=== PATIENT | male | born 1975 | race Hispanic/Latino ===

== ENCOUNTER 2016-06-24 18:14 | Observation (INO) | payer OTHER ==
--- NOTE | 2016-06-24 19:36 | ED.PDOC ---
History of Present Illness - General Chief Complaint: GI Problem Stated Complaint: epigastric discomfort, N/V Time Seen by Provider: 06/24/16 19:34 Source: patient - History of Present Illness Initial Comments: Conrad 40 y/o male stated that his symptoms started yesterday with diarrhea followed by nausea vomiting then this morning had mid abdominal pains Timing/Duration: 24 hours Allergies/Adverse Reactions: Allergies NO KNOWN ALLERGY Allergy (Verified 06/24/16 18:46) Past Medical History (General) - Patient Medical History Hx Stroke: No Hx Congestive Heart Failure: No Hx Diabetes: Yes - Vaccination History Hx Influenza Vaccination: Yes - 2015 Hx Pneumococcal Vaccination: No - Social History Hx Tobacco Use: No Hx Alcohol Use: Yes - Social use Hx Substance Use: Yes Family Medical History - Family History Father Living Status: Still Living Hx Cardiac Disease: Yes Hx Family Diabetes: Yes Physical Exam - Physical Exam General Appearance: Alert, No apparent distress Eye Exam: bilateral normal Ears, Nose, Throat: hearing grossly normal, normal ENT inspection, normal pharynx Neck: non-tender, full range of motion, supple Respiratory: chest non-tender, lungs clear, normal breath sounds, no respiratory distress Cardiovascular/Chest: normal peripheral pulses, regular rate, rhythm, no edema, no gallop, no JVD, no murmur Peripheral Pulses: radial,right: 2+, radial,left: 2+, dorsalis pedis,right: 2+, dorsalis pedis,left: 2+ Gastrointestinal/Abdominal: normal bowel sounds, soft, no organomegaly, tenderness - mid abdomen Back Exam: normal inspection, no CVA tenderness, no vertebral tenderness Extremity: normal range of motion, non-tender, normal inspection Neurologic: alert, normal mood/affect, oriented x 3 Skin Exam: normal color, warm/dry Progress - Results/Orders Results/Orders: 06/24/16 18:58 URINALYSIS Stat 06/24/16 19:37 Chest,1 View [RAD] Stat 06/24/16 19:38 EKG Assessment ONCE 06/24/16 19:45 EKG STAT 06/24/16 20:13 Abdoment/Pelvis w/o Contrast [CT] Stat 06/24/16 20:14 Lactated Ringers [Lr] 1,000 ml IVS ONCE Laboratory Results WBC 7.3 K/mm3 (4.8-10.8) 06/24/16 18:40 RBC 5.44 M/mm3 (4.70-6.10) 06/24/16 18:40 Hgb 16.5 gm/dL (14.0-18.0) 06/24/16 18:40 Hct 48.1 % (42.0-52.0) 06/24/16 18:40 MCV 88.3 fl (80.0-94.0) 06/24/16 18:40 MCH 30.3 pg (27.0-31.0) 06/24/16 18:40 MCHC 34.3 g/dL (33.0-37.0) 06/24/16 18:40 RDW 12.9 % (11.5-14.5) 06/24/16 18:40 Plt Count 213 K/mm3 (130-400) 06/24/16 18:40 MPV 9.5 fl (7.40-10.4) 06/24/16 18:40 Absolute Neuts (auto) 5.20 K/uL (1.8-6.8) 06/24/16 18:40 Absolute Lymphs (auto) 1.30 K/uL (1.0-3.4) 06/24/16 18:40 Absolute Monos (auto) 0.50 K/uL (0.2-0.8) 06/24/16 18:40 Absolute Eos (auto) 0.20 K/uL (0.0-0.4) 06/24/16 18:40 Absolute Basos (auto) 0.10 K/uL (0.0-0.1) 06/24/16 18:40 Neutrophils % 71.6 % (42.0-78.0) 06/24/16 18:40 Lymphocytes % 18.4 % (20.0-50.0) L 06/24/16 18:40 Monocytes % 7.0 % (2.0-9.0) 06/24/16 18:40 Eosinophils % 2.2 % (1.0-5.0) 06/24/16 18:40 Basophils % 0.8 % (0.0-2.0) 06/24/16 18:40 Sodium 134 mmol/L (135-145) L 06/24/16 18:40 Potassium 3.4 mmol/L (3.6-5.0) L 06/24/16 18:40 Chloride 101 mmol/L (101-111) 06/24/16 18:40 Carbon Dioxide 26 mmol/L (21-31) 06/24/16 18:40 Anion Gap 10.4 (12-18) L 06/24/16 18:40 BUN 8 mg/dL (7-18) 06/24/16 18:40 Creatinine 0.50 mg/dL (0.6-1.3) L 06/24/16 18:40 BUN/Creatinine Ratio 16.0 (10-20) 06/24/16 18:40 POC Glucose 250 mg/dL (70-105) H 06/24/16 19:12 Random Glucose 307 mg/dL (70-105) H 06/24/16 18:40 Serum Osmolality 278.2 mOsm/L (275-295) 06/24/16 18:40 Calcium 8.7 mg/dL (8.4-10.2) 06/24/16 18:40 Total Bilirubin 0.9 mg/dL (0.2-1.0) 06/24/16 18:40 AST 28 IU/L (10-42) 06/24/16 18:40 ALT 74 IU/L (10-60) H 06/24/16 18:40 Alkaline Phosphatase 98 IU/L (42-121) 06/24/16 18:40 Serum Total Protein 7.5 gm/dL (6.4-8.2) 06/24/16 18:40 Albumin 4.2 g/dl (3.2-5.5) 06/24/16 18:40 Globulin 3.3 gm/dL (2.3-3.5) 06/24/16 18:40 Albumin/Globulin Ratio 1.3 (1.1-1.9) 06/24/16 18:40 Lipase 84 U/L (22-51) H 06/24/16 18:40 - EKG/XRAY/CT EKG: Sinus Comments: normal ekg CT Ordered: Yes - abd/pelvis-diverticulosis,no diverticulitis Departure - Departure Clinical Impression: Abdominal pain, acute, epigastric, Diabetes 1.5, managed as type 2 Acute pancreatitis, unspecified Qualifiers: Pancreatitis type: unspecified pancreatitis type Qualifier Code: (K85.9) Acute pancreatitis, unspecified Time of Disposition: 00:12 - D/W David [id number] for admit Disposition: Admit Patient Condition: Good Departure Forms: ED Discharge - Pt. Copy, Patient Portal Self Enrollment Referrals: Edu Hunt MD [Primary Care Provider] - 1-2 Weeks
[2016-06-24] MEDS ORDERED: LACTATED RINGERS 1,000 ML IVS ONE (20:14)
--- NOTE | 2016-06-24 20:54 | CT ---
PROCEDURE: Abdoment/Pelvis w/o Contrast Clinical History: pain Indication: Same as above Comparison: None Technique: CT of the abdomen and pelvis was done without intravenous contrast. Images were obtained from the lung base to the level of the pubic symphysis in axial plane, followed by orthogonal sagittal and coronal reconstruction. Oral contrast was not given for the study. Total DLP: 978.60 mGy*cm. Findings: Images through the lung bases do not show any focal infiltrates or pleural effusions. There is a small hiatal hernia. The liver, gallbladder, pancreas, spleen and the bilateral adrenal glands appear unremarkable, given the limitation of lack of intravenous contrast. The bilateral kidneys do not show any evidence of hydronephrosis or nephrolithiasis. The bilateral ureters and the bilateral periureteral soft tissues and fat planes are unremarkable. The urinary bladder is unremarkable, without any evidence of wall thickening, calculi or filling defects. The small bowel appears unremarkable, without any evidence of small bowel obstruction or bowel wall thickening. There is no CT evidence of acute appendicitis, pericecal inflammatory change or ileocecal mesenteric adenitis. The ileocecal junction appears unremarkable. There is no CT evidence of acute colonic diverticulitis or colitis or large bowel obstruction. There is presence of large bowel diverticulosis, most pronounced in the distal descending colon and the sigmoid colon There is no pathological lymphadenopathy in the retroperitoneum or in the pelvic region. There is no evidence of free fluid or free air in the abdomen or the pelvic region. There is no clinically significant abdominal aortic aneurysm. There is no clinically significant inguinal or ventral hernia. The visualized lumbar spine show underlying mild degenerative change. The paravertebral soft tissues are unremarkable. The remainder of the pelvic structures are unremarkable. Impression: Large bowel diverticulosis without CT evidence of acute diverticulitis Location of Interpretation: [facility] Electronically signed by: Giorgio Lopez MD 06/24/2016 8:53 PM [employer]ORDS TECHNOLOGY TEACHER
--- NOTE | 2016-06-24 21:11 | RAD ---
PROCEDURE: XR CHEST 1 VIEW HISTORY: pain COMPARISON: None TECHNIQUE: Single projection of the chest was done. FINDINGS: There is presence of minimal right basilar infiltrate/atelectasis . There are no pneumothoraces or pleural effusions. The pulmonary vascularity is normal. The cardiomediastinal contour is unremarkable . IMPRESSION: There is presence of minimal right basilar infiltrate/atelectasis . Location of Interpretation: [facility] Electronically signed by: Giorgio Lopez MD 06/24/2016 9:10 PM CHILD DEVELOPMENT DIRECTOR
--- NOTE | 2016-06-25 00:39 | HP ---
SUPERVISING PHYSICIAN: Edu Hunt MD CHIEF COMPLAINT: Epigastric discomfort with some nausea and vomiting. HISTORY OF PRESENT ILLNESS: Mr. Tran is a 40-year-old, male who presented to the Emergency Department complaining of some nausea and vomiting the morning prior to admission with some epigastric pain prior to presenting to the Emergency Department. He notes that he had some diarrhea the previous day, but otherwise has been healthy. He has a history of being a type 2 diabetic, currently on metformin, but recently being started on Trulicity, which is now in his third week. He notes that initially he had no problems with the injection, but on week 2, he was having a little bit of nausea and this week, which is 24 hours post injection, he started having nausea and the epigastric discomfort. In the Emergency Department, laboratory studies showed him to have a normal CBC with white count 7.3. Chemistries showed potassium 3.4, glucose 307, BUN 8, creatinine 0.5. Liver functions showed slightly elevated AST of 74. Troponin was less than 0.02. Lipase was slightly elevated at 84. Urinalysis showed greater than 1000 glucose with 40 ketones. Otherwise, microscopic was within normal limits. H. pylori IGG antibody was positive. EKG showed normal sinus rhythm and the patient was denying any chest pain. He noted he was having abdominal pains that were more over the epigastric region. He was given a GI slider upon admission to the Medical/Surgical Floor which did provide some relief from the epigastric discomfort. Radiographic studies in the Emergency Department prior to admission included a chest x-ray and per radiology interpretation showed just a minimal right basilar infiltrate versus atelectasis. Abdominopelvic CT without contrast per radiology interpretation showed large bowel diverticulosis without CT evidence of acute diverticulitis. Otherwise, unremarkable. The patient is to be admitted to the Medical/Surgical Floor and placed in observation for further treatment and evaluation with concerns for possible acute pancreatitis versus complications from diabetes and possible H. pylori associated gastritis. PAST MEDICAL HISTORY: 1. Diabetes mellitus, type 2. PAST SURGICAL HISTORY: No surgeries noted. CURRENT MEDICATIONS: 1. Metformin 1000 mg twice daily. 2. Trulicity 0.75 mg subcutaneously weekly, last injection was on 06/24/16. ALLERGIES: NO KNOWN DRUG ALLERGIES. SOCIAL HISTORY: The patient works in the [employer] for [employer] in [place], [place]. He currently lives in [place]. He is , has no children. He denies ever smoking and drinks on social occasions. REVIEW OF SYSTEMS: CONSTITUTIONAL: Denies any fevers, chills, or unintentional weight loss or weight gain. HEENT: Denies nasal congestion, runny nose, sore throat, vision changes, earaches. RESPIRATORY: Denies cough, shortness of breath. CARDIOVASCULAR: Denies chest pain or palpitations. No syncopal episodes. GASTROINTESTINAL: As noted in history of present illness, epigastric discomfort with some nausea, vomiting and diarrhea. GENITOURINARY: Denies dysuria, polyuria or other urinary symptoms. NEUROLOGIC: Denies syncopal episodes or other neurological deficits. PHYSICAL EXAMINATION: VITAL SIGNS: Temperature 97.1. Pulse 67. Blood pressure 106/70. Respirations 16. O2 saturation 94% on room air. Weight 121.9 kg. GENERAL: The patient is asleep upon examination in the Emergency Department, but is awoken easily and is alert and appears to be in no acute distress. HEENT: Tympanic membranes clear bilaterally. Oropharynx is pink, moist without any lesions. NECK: No jugular venous distention noted. CHEST: Lungs clear to auscultation bilaterally without any rhonchi, wheezes, or rales. CARDIOVASCULAR: Regular rate and rhythm without any appreciable murmurs, gallops, or rubs. ABDOMEN: Epigastric tenderness on palpation. No rebound tenderness. Bowel sounds present. EXTREMITIES: There is no cyanosis, clubbing or edema. NEUROLOGIC: The patient is alert and oriented times three with no noted neuromotor deficits. LABORATORY: CBC within normal limits. Chemistries show potassium 3.4, glucose elevated at 307. Liver functions show just mildly elevated AST of 74. Troponin less than 0.02, lipase elevated at 84. Urinalysis showed greater than 1000 glucose with 40 ketones. Microscopic within normal limits. H. pylori IGG antibody was positive. RADIOLOGY: Chest x-ray per radiology interpretation showed the presence of minimal right basilar infiltrate versus atelectasis. CT of the abdomen and pelvis without contrast per radiology interpretation showed large bowel diverticulosis without CT evidence of of acute diverticulitis. ASSESSMENT: 1. Acute abdominal pain, primarily epigastric region, possibly gastroenteritis versus gastritis secondary to Helicobacter pylori infection, possibly complicated by Trulicity with recent injection within the last 48 hours. 2. Type 2 diabetes mellitus, poorly controlled, possibly resulting in complications secondary to some gastroparesis resulting in symptoms such as nausea and vomiting. Last hemoglobin A1c on 06/11/16 was 11.1%. 3. Elevated lipase, likely secondary to fasting state rather than acute pancreatitis with CT of the abdomen without any evidence of pancreatitis and exacerbated by hyperglycemia and mild dehydration. 4. Mild dehydration secondary to poorly controlled diabetes. 5. Diverticulosis without CT evidence of diverticulitis. PLAN: The patient will be placed in observation for treatment of abdominal discomfort. He will be started on IV fluids initially with half normal saline with 20 of potassium at 250 mL per hour. He was initially given 1 liter of lactated Ringers in the Emergency Department. We will start him on insulin sliding scale and will remain NPO until further evaluation and repeat laboratory studies. He will be provided Zofran for nausea and started on Protonix with concerns for gastritis. We will anticipate length of stay to be 1 to 2 days. Until then, we will continue to monitor the patient closely and treat appropriately. #[id number] [facility]
[2016-06-25] MEDS ORDERED: LIDOCAINE VIS-MYLANTA 30 ML UD PO ONE (01:22)
[2016-06-25] MEDS ORDERED: SODIUM CHLORIDE 0.9% (FLUSH) 10 ML SYG IV PRN (01:25)
[2016-06-25] MEDS ORDERED: DEXTROSE 50% 25 GM/50 ML SYG IV PRN (01:25)
[2016-06-25] MEDS ORDERED: GLUCAGON INJ 1 MG VIAL SUBCU PRN (01:25)
[2016-06-25] MEDS ORDERED: ONDANSETRON INJ 4 MG/2 ML VIAL IV PRN (01:28)
[2016-06-25] MEDS ORDERED: PANTOPRAZOLE SODIUM IV 40 MG VIAL IV SCH (01:30)
[2016-06-25] MEDS ORDERED: IV SET AND CAP CHANGE INJ INJ SCH (01:30)
[2016-06-25] MEDS ORDERED: SODIUM CHLORIDE 0.9% 10 ML VIAL ONE (02:15)
[2016-06-25] MEDS ORDERED: INSULIN LISPRO 100 UNITS/ML PEN SUBCU ONE (02:16)
[2016-06-25] MEDS: KCL 20MEQ/0.45% NS 1,000 ML IVS PRN ×2 (02:29→06:25)
--- NOTE | 2016-06-25 03:19 | PCM.CORE ---
Physician DVT/VTE - Nurse DVT Assessment & Total Each Risk Factor is 1 Point: Obesity (BMI >25) DVT Assessment Score: 1 - 0-1 Low Risk Treatments: Early Ambulation, Low Risk no further treatment or intervention needed
[2016-06-25] MEDS: INSULIN LISPRO 100 UNITS/ML PEN SUBCU SCH ×2 (06:25→12:21)
[2016-06-25] MEDS ORDERED: SODIUM CHLORIDE 0.9% 10 ML VIAL IV PRN (07:14)
[2016-06-25] MEDS ORDERED: metFORMIN XR 500 MG TAB.ER.24 PO ONE (07:37)
[2016-06-25] MEDS ORDERED: metFORMIN XR 500 MG TAB.ER.24 PO SCH (09:00)
[2016-06-25 09:53] VITALS: BP 112/71; TEMP 97.2; O2SAT 97
--- NOTE | 2016-06-25 13:47 | DS ---
SUPERVISING PHYSICIAN: Edu Hunt MD DISCHARGE DIAGNOSIS: 1. Acute abdominal pain, primarily epigastric region, most likely gastroenteritis versus gastritis secondary to Helicobacter pylori infection, possibly complicated by Trulicity with recent injection within 48 hours of admission. 2. Type 2 diabetes mellitus, poorly controlled, with question of gastroparesis. Last hemoglobin A1c on 06/11/16 was 11.1. 3. Elevated lipase, likely secondary to fasting state rather than acute pancreatitis with CT of the abdomen showing no evidence of pancreatitis. Elevated lipase may have also been exacerbated by hyperglycemia and mild dehydration. 4. Mild dehydration secondary to poorly controlled diabetes. 5. Diverticulosis without CT evidence of diverticulitis. HISTORY OF PRESENT ILLNESS: This is a 40-year-old, male who presented to the Emergency Department complaining of some nausea and vomiting the morning prior to admission with also some epigastric pain prior to presenting to the Emergency Department. He notes that he had some diarrhea the previous day, but otherwise has been healthy. He has a history of type 2 diabetes, currently on metformin, but recently being started on Trulicity. He has been on Trulicity for about 3 weeks. In the Emergency Department, laboratory studies showed him to have a normal CBC with white count 7.3. Chemistries showed potassium 3.4, glucose 307, BUN 8, creatinine 0.5. Liver functions showed slightly elevated AST of 74. Troponin was less than 0.02. Lipase was slightly elevated at 84. Urinalysis showed greater than 1000 glucose with 40 ketones. Otherwise, microscopic was within normal limits. H. pylori IGG antibody was positive. EKG showed normal sinus rhythm. His abdominal pains were more in the epigastric area. He was given a GI slider which did provide some relief from the epigastric discomfort. Abdominopelvic CT without contrast per radiology interpretation showed large bowel diverticulosis without CT evidence of acute diverticulitis. This was was otherwise, unremarkable. The patient is to be admitted to the hospital for further treatment and evaluation for possible acute pancreatitis versus complications from diabetes and question H. pylori associated gastritis. HOSPITAL COURSE: The patient was placed in observation and for treatment of his abdominal discomfort, he was given IV fluids initially. He was also started on sliding scale insulin. He was placed on NPO status and this repeat laboratory studies this morning showed a CBC that was within normal limits and his electrolytes were within normal limits. BUN was 7, creatinine 0.59, ALT slightly elevated at 65. Amylase 50, lipase normal at 38. He ate his breakfast this morning and had no problems with gastrointestinal symptoms since last night other than he did say that he had one bowel movement that he called diarrhea. Other than that, he has had no complaints of chest pain, abdominal pain, shortness of breath, nausea or vomiting this morning. DISCHARGE PLAN: The patient will be discharged home in stable condition. He is to resume his previous diabetic diet. He is also to increase activity as tolerated. He has an appointment with Dr. Hunt on 07/09/16 at 11 AM. He is to continue his present medications of metformin and Trulicity. If he does have any further complaints of abdominal pain or nausea and vomiting or diarrhea , he is to call Dr. Hunt' office or return to the Emergency Room. His H. pylori antibody was positive here at the hospital, so it may be beneficial to have the patient do an H. pylori breath test at Dr. Hunt' office. Dr. Hunt is the collaborating physician and available for consultation. DISCHARGE MEDICATIONS: 1. Metformin. 2. Trulicity. #[id number] [facility]
--- NOTE | 2016-07-12 23:57 | RAD ---
PROCEDURE: XR CHEST 1 VIEW HISTORY: pain COMPARISON: None TECHNIQUE: Single projection of the chest was done. FINDINGS: There is presence of minimal right basilar infiltrate/atelectasis . There are no pneumothoraces or pleural effusions. The pulmonary vascularity is normal. The cardiomediastinal contour is unremarkable . IMPRESSION: There is presence of minimal right basilar infiltrate/atelectasis . Location of Interpretation: [facility] Electronically signed by: Giorgio Lopez MD 06/24/2016 9:10 PM SHOP AND ALTERATION TAILOR
== END 2016-06-25 12:45 | disposition home or self-care (01) ==
LOC: ER 18:14 → MS 06-25 00:37
PROVIDERS: ADMIT Nurse Practitioner Family; ATTEND Family Medicine
DX: E11.65 Type 2 diabetes mellitus with hyperglycemia (principal); R10.13 Epigastric pain; R11.2 Nausea with vomiting, unspecified; E86.0 Dehydration; K57.30 Diverticulosis of large intestine without perforation or abscess without bleeding; Z79.84 Long term (current) use of oral hypoglycemic drugs

== ENCOUNTER → 2017-06-16 | Outpatient (CLI) | payer OTHER | LOC: GMAJ 11:33 | PROVIDERS: ATTEND Family Medicine | DX: Z00.00 Encounter for general adult medical examination without abnormal findings (principal) ==

== ENCOUNTER → 2018-12-19 | Outpatient (CLI) | payer OTHER | LOC: LAB.O 17:26 | PROVIDERS: ATTEND Nurse Practitioner Family | DX: R10.84 Generalized abdominal pain (principal) ==

== ENCOUNTER → 2018-12-24 | Outpatient (CLI) | payer OTHER | LOC: LAB.O 11:39 | PROVIDERS: ATTEND Nurse Practitioner Family | DX: R19.7 Diarrhea, unspecified (principal) ==

== ENCOUNTER 2018-12-31 16:02 | Emergency (ER) | payer OTHER ==
[2018-12-31] MEDS ORDERED: FLUCONAZOLE 100 MG TAB PO ONE (17:05)
--- NOTE | 2018-12-31 17:07 | ED.PDOC ---
History of Present Illness - General Chief Complaint: GI Problem Time Seen by Provider: 12/31/18 16:07 Source: patient Exam Limitations: no limitations - History of Present Illness Initial Comments: the patient's a 43-year-old male presenting to the emergency room secondary to persistent diarrhea over the last couple of weeks. The patient has been on ciprofloxacin and metronidazole along with a probiotic for the last 11 days. He is continuing to have some diarrhea. Mild abdominal cramping. No fever. No pus. He does have a history of diverticulosis but not diverticulitis. He did bring some of his workup from his primary care doctor's office including stool studies. No significant bacterial pathogens were found however there did appear to be a large amount of yeast in the stool. He denies overt blood in the stool but was apparently guaiac positive. No weight loss. No nausea or vomiting. Normal oral intake. He is actually not been taking any antidiarrheal except for one dose of Pepto-Bismol.he reports pretty good blood sugar control ranging from 100-160 on his new insulin. Timing/Duration: other - 2 weeks Severity: mild Improving Factors: nothing Worsening Factors: nothing Associated Symptoms: malaise Allergies/Adverse Reactions: Allergies NO KNOWN ALLERGY Allergy (Verified 06/24/16 18:46) Home Medications: Ambulatory Orders Dulaglutide [Trulicity] 0.75 mg SC WKLY 06/25/16 Metformin HCl [Metformin Hydrochloride E] 1,000 mg PO BID 06/25/16 Fluconazole [Diflucan Tab] 100 mg PO DAILY #5 tab 12/31/18 Review of Systems - Review of Systems Constitutional: States: no symptoms reported EENTM: States: no symptoms reported Respiratory: States: no symptoms reported Cardiology: States: no symptoms reported Gastrointestinal/Abdominal: States: see HPI Genitourinary: States: no symptoms reported Musculoskeletal: States: no symptoms reported Skin: States: no symptoms reported Neurological: States: no symptoms reported Endocrine: States: no symptoms reported All other Systems: No Change from Baseline Past Medical History (General) - Patient Medical History Hx Seizures: No Hx Stroke: No Hx Asthma: No Hx of COPD: No Hx Congestive Heart Failure: No Hx Pacemaker: No Hx Hypertension: No Hx Diabetes: Yes Hx MRSA: No - Vaccination History Hx Influenza Vaccination: Yes - 2015 Hx Pneumococcal Vaccination: No - Social History Hx Tobacco Use: No Hx Alcohol Use: Yes - 2-3 X wk Hx Substance Use: No Hx Physical Abuse: No Hx Emotional Abuse: No Family Medical History - Family History Father Living Status: Still Living Hx Cardiac Disease: Yes Hx Family Diabetes: Yes Physical Exam - Physical Exam General Appearance: Alert, Comfortable, No apparent distress Eye Exam: bilateral normal Ears, Nose, Throat: hearing grossly normal, normal ENT inspection Neck: full range of motion, supple Respiratory: lungs clear, normal breath sounds, no respiratory distress, no accessory muscle use Cardiovascular/Chest: normal peripheral pulses, regular rate, rhythm, no edema Peripheral Pulses: radial,right: 2+, radial,left: 2+, dorsalis pedis,right: 2+, dorsalis pedis,left: 2+ Gastrointestinal/Abdominal: soft, other - mild left lower abdominal discomfort palpation. Rectal Exam: deferred Back Exam: normal inspection, no CVA tenderness, no vertebral tenderness Extremity: normal range of motion, non-tender, normal inspection, no pedal edema, normal capillary refill Neurologic: [employer] II-XII nml as tested, alert, normal mood/affect, oriented x 3 Skin Exam: normal color Progress - Progress Progress: 12/31/18 17:08 the patient is a 43-year-old male presenting to the emergency room with persistent diarrhea. He appears to have had a good workup with his primary care doctor. He has completed a course of ciprofloxacin and metronidazole. He denies however taking any form of an antifungal such as itraconazole, ketoconazole, fluconazole or Diflucan. given the fact that his stool studies showed a significant yeast burden, I'm going to place him on 5 days of oral Diflucan. He does need to continue taking a probiotic of his choice. He can take yogurt if he wishes but he does need to be careful about his blood sugars. He can use Imodium once or twice a day to help reduce the diarrhea. If the patient is failing to improve with these measures then further evaluation including repeating some lab work and possibly a CT scan may be warranted to help rule out diverticulitis as he does have a history of diverticulosis. Again he has already completed a course of ciprofloxacin and Flagyl so that does seem less likely at this point. ER warnings were given for any worsening. Departure - Departure Clinical Impression: Colitis presumed infectious Disposition: Discharge to Home or Self Care Condition: Fair Departure Forms: ED Discharge - Pt. Copy, Patient Portal Self Enrollment Instructions: Yeast Infection (DC) Diet: diabetic diet Activity: increase activity as tolerated Referrals: Edu Hunt MD [Primary Care Provider] - 1-2 Days Prescriptions: Fluconazole [Diflucan Tab] 100 mg PO DAILY #5 tab Home Medications: Ambulatory Orders Dulaglutide [Trulicity] 0.75 mg SC WKLY 06/25/16 Metformin HCl [Metformin Hydrochloride E] 1,000 mg PO BID 06/25/16 Fluconazole [Diflucan Tab] 100 mg PO DAILY #5 tab 12/31/18 Additional Instructions: the patient is a 43-year-old male presenting to the emergency room with persistent diarrhea. He appears to have had a good workup with his primary care doctor. He has completed a course of ciprofloxacin and metronidazole. He denies however taking any form of an antifungal such as itraconazole, ketoconazole, fluconazole or Diflucan. given the fact that his stool studies showed a significant yeast burden, I'm going to place him on 5 days of oral Diflucan. He does need to continue taking a probiotic of his choice. He can take yogurt if he wishes but he does need to be careful about his blood sugars. He can use Imodium once or twice a day to help reduce the diarrhea. If the patient is failing to improve with these measures then further evaluation including repeating some lab work and possibly a CT scan may be warranted to help rule out diverticulitis as he does have a history of diverticulosis. Again he has already completed a course of ciprofloxacin and Flagyl so that does seem less likely at this point. ER warnings were given for any worsening.
[2019-01-01 09:08] VITALS: TEMP 99
[2019-01-01 09:15] VITALS: BP 121/86; O2SAT 95
== END 2018-12-31 17:25 | disposition home or self-care (01) ==
LOC: ER 16:02
DX: K52.9 Noninfective gastroenteritis and colitis, unspecified (principal); E11.9 Type 2 diabetes mellitus without complications; Z87.19 Personal history of other diseases of the digestive system; Z79.4 Long term (current) use of insulin; Z79.899 Other long term (current) drug therapy

== ENCOUNTER → 2019-03-28 | Outpatient (CLI) | payer OTHER | LOC: GMAJ 17:39 | PROVIDERS: ATTEND Family Medicine | DX: R94.5 Abnormal results of liver function studies (principal); E11.9 Type 2 diabetes mellitus without complications ==